=== PATIENT | male | born 1965 | race Caucasian/White ===

== ENCOUNTER → 2019-01-13 | Outpatient (CLI) | payer BC ==
--- NOTE | 2019-01-13 16:32 | RAD ---
Limited sonogram of the abdomen Clinical indications: Left lower quadrant pain for several days. FINDINGS: In the area of clinical concern of the left lower quadrant, there is a focally prominent bowel loop with mild hyperemia. This could represent segmental enteritis or colitis. With Valsalva maneuvers, no hernia is seen. IMPRESSION: Segmental enteritis or colitis. Electronically signed by: Salvador Martins MD (01/13/2019 4:29 PM) [id number]
== END | disposition home or self-care (01) ==
LOC: US 07:45
DX: K31.89 Other diseases of stomach and duodenum (principal)
CPT/HCPCS: 76705